=== PATIENT | female | born 1975 | race American Indian/Alaskan Native ===

== ENCOUNTER 2019-02-14 08:15 | Day surgery (SDC) | payer BC ==
--- NOTE | 2019-02-14 08:51 | Anesthesia Consultation ---
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
--- NOTE | 2019-02-14 08:51 | Anesthesia Day of Surgery ---
Anesthesia Day of Surgery - Day of Surgery Patient Examined: Yes Patient H&P Reviewed: Yes Patient is NPO: Yes
[2019-02-14] MEDS ORDERED: DILAUDID ONE (09:19)
[2019-02-14] MEDS ORDERED: DIPRIVAN 10 MG/ML IV ONE ×4 (09:19)
[2019-02-14] MEDS ORDERED: XYLOCAINE MPF 2% ONE (09:19)
[2019-02-14] MEDS ORDERED: VERSED ONE (09:19)
[2019-02-14] MEDS ORDERED: NACL 0.9% 500 ML 500 ML ONE (09:37)
[2019-02-14 12:53] VITALS: BP 120/74
--- NOTE | 2019-02-20 08:56 | Magnetic Resonance Report ---
MRI PELVIS WITH AND WITHOUT CONTRAST INDICATION: Pelvic pain. COMPARISON: None similar at this institution. FINDINGS: Multiplanar and multisequence MRI of the pelvis performed before and after IV contrast demonstrates an approximately 10.7 x 7.2 x 6.3 cm heterogeneous, myomatous uterus, neutral to slightly retroflexed in position as on sagittal series 3, image 16. A dominant enhancing, right paramidline partly exophytic fibroid posterosuperiorly towards the fundus is approximately 2.5 cm, image 17 as also another more lateral to the left measuring approximately 2.6 x 1.8 cm, image 14. Endometrial stripe thickness appears grossly preserved with minimal endometrial canal fluid. As on sagittal images 11-25 and axial series 11, images 8-22, an approximately 5.8 x 7.7 x 8 cm large heterogeneously enhancing exophytic soft tissue mass anterior to the uterus fills the pelvis, possibly a hypervascular exophytic fibroid. Though its origin difficult to exactly delineate on this exam limited due to motion artifact, a vascular pedicle and its broad-based attachment suspected along the anterior surface of the uterus as on axial images 11-17. Ovaries though not clearly delineated separately. Small fluid may around the uterus and the large anterior soft tissue mass. Grossly normal imaged bowel, marrow and muscle signal. No definite size significant adenopathy, to the extent assessed. CONCLUSION: Myomatous uterus, as detailed above, including an approximately 8 cm large exophytic mass/presumed fibroid anteriorly, as detailed above. Please correlate. Thank you for the opportunity to participate in this patient's care.
== END 2019-02-14 13:00 | disposition home or self-care (01) ==
LOC: MRI 08:15 → CATHLABREC 08:15 → EDSTATUS 09:30 → CATHLABREC 13:00
PROVIDERS: ATTEND Radiology Vascular & Interventional Radiology
DX: D25.9 Leiomyoma of uterus, unspecified (principal); N93.9 Abnormal uterine and vaginal bleeding, unspecified; Z79.82 Long term (current) use of aspirin; Z88.5 Allergy status to narcotic agent; Z79.899 Other long term (current) drug therapy; Z86.73 Personal history of transient ischemic attack (TIA), and cerebral infarction without residual deficits
CPT/HCPCS: 72197; A9577; J1170; J2250; J2704; J7040